=== PATIENT | female | born 1990 | race Caucasian/White ===

== ENCOUNTER 2016-04-21 21:02 | Emergency (ER) | payer OTHER ==
--- NOTE | 2016-04-21 21:53 | ER Document Report ---
ED Medical Screen (RME) - General Stated Complaint: ABDOMINAL PAIN Mode of Arrival: Ambulatory Information source: Patient Notes: Patient presents to emergency department with right upper quadrant abdominal pain for the past 3 days. Reports nausea and diarrhea. Reports history of cholecystitis. - Related Data Allergies/Adverse Reactions: No Known Allergies Allergy (Verified 01/12/13 15:38) Past Medical History - Past Medical History Cardiac Medical History: Reports: Hx Hypertension Past Surgical History: Reports: Hx Dilation and Curettage, Hx Gynecologic Surgery - d&c - Immunizations Hx Diphtheria, Pertussis, Tetanus Vaccination: Yes - 02/2013 Physical Exam - Vital signs Vitals: Temp Pulse BP Pulse Ox 98.4 F 123 H 145/92 H 100 04/21/16 21:06 04/21/16 21:06 04/21/16 21:06 04/21/16 21:06 Course - Vital Signs Vital signs: Temp Pulse Resp BP Pulse Ox 98.4 F 123 H 145/92 H 100 04/21/16 21:06 04/21/16 21:06 04/21/16 21:06 04/21/16 21:06
[2016-04-21 22:25] LABS: ABSOLUTE BASOPHILS # (AUTO) 0.1 10^3/uL (0.0-0.2); ABSOLUTE EOSINOPHILS # (AUTO) 0.3 10^3/uL (0.0-0.6); ABSOLUTE LYMPHOCYTES (AUTO) 2.7 10^3/uL (0.5-4.7); ABSOLUTE MONOCYTES (AUTO) 0.9 10^3/uL (0.1-1.4); ABSOLUTE NEUT (AUTO) 7.6 10^3/uL (1.7-8.2); BASOPHILS % (AUTO) 0.8 % (0-2); EOSINOPHILS % (AUTO) 2.7 % (0-6); HEMATOCRIT 38.3 % (36.0-47.0); HEMOGLOBIN 12.2 g/dL (12.0-15.5); HGB HCT DIFFERENCE -1.7; LYMPHOCYTES % (AUTO) 23.4 % (13-45); MEAN CORPUSCULAR HEMOGLOBIN 24.4 pg (27.0-33.4); MEAN CORPUSCULAR HGB CONC 31.8 g/dL (32.0-36.0); MEAN CORPUSCULAR VOLUME 77 fl (80-97); MONOCYTES % (AUTO) 7.7 % (3-13); RED CELL DISTRIBUTION WIDTH 14.9 % (11.5-14.0); SEGMENTED NEUTROPHILS % (AUTO) 65.4 % (42-78); WHITE BLOOD COUNT 11.7 10^3/uL (4.0-10.5)
[2016-04-21 22:43] LABS: ALANINE AMINOTRANSFERASE 41 U/L (9-52); ALBUMIN 4.3 g/dL (3.5-5.0); ALKALINE PHOSPHATASE 90 U/L (38-126); ANION GAP 12 (5-19); ASPARTATE AMINO TRANSFERASE 29 U/L (14-36); BILIRUBIN,TOTAL 0.6 mg/dL (0.2-1.3); BLOOD UREA NITROGEN 14 mg/dL (7-20); CALCIUM 9.9 mg/dL (8.4-10.2); CARBON DIOXIDE 27 mmol/L (22-30); CHLORIDE 103 mmol/L (98-107); CREATININE RESULT 0.78 mg/dL (0.52-1.25); GLUCOSE 100 mg/dL (75-110); POTASSIUM 4.9 mmol/L (3.6-5.0); SODIUM 141.9 mmol/L (137-145); TOTAL PROTEIN 7.3 g/dL (6.3-8.2)
[2016-04-22 00:32] LABS: APPEARANCE,URINE CLEAR; BILIRUBIN,URINE NEGATIVE (NEGATIVE); GLUCOSE, URINE NEGATIVE (NEGATIVE); KETONES,URINE NEGATIVE (NEGATIVE); LEUKOCYTE ESTERASE,URINE NEGATIVE (NEGATIVE); NITRITE,URINE NEGATIVE (NEGATIVE); PROTEIN,URINE NEGATIVE (NEGATIVE); URINE SPECIFIC GRAVITY 1.016; UROBILINOGEN,URINE NEGATIVE mg/dL (<2.0)
[2016-04-22 00:56] VITALS: BP 140/77
[2016-04-22] MEDS ORDERED: METHYLPREDNISOLONE INJ 125 MG/2 ML SDV IV ONE (01:15)
[2016-04-22] MEDS ORDERED: DIPHENHYDRAMINE HCL 50 MG/ML VIAL IV ONE (01:15)
--- NOTE | 2016-04-22 01:35 | ER Document Report ---
ED General - General Chief Complaint: Abdominal Pain Stated Complaint: ABDOMINAL PAIN Mode of Arrival: Ambulatory Notes: Patient is a 26-year-old female presents for complaints of pain in the right upper quadrant. Patient has a history of known gallbladder disease. This started when she was 2 years ago. They do not want to do surgery at that time . She says since then she can usually work through the pain and will go away. Over last 3 days pain has been constant. No vomiting. No fevers. Patient's only other complaint is that she's developed red macular papular type rash over her extremities. She says it started out as itching over extremities and now has developed a rash. She does not remember eating any new foods. No new medications. She is unsure where this came from. TRAVEL OUTSIDE OF THE [place] IN LAST 30 DAYS: No - Related Data Allergies/Adverse Reactions: No Known Allergies Allergy (Verified 01/12/13 15:38) Past Medical History - General Information source: Patient - Social History Smoking Status: Never Smoker Frequency of alcohol use: None Drug Abuse: None Family History: Reviewed & Not Pertinent Patient has suicidal ideation: No Patient has homicidal ideation: No - Past Medical History Cardiac Medical History: Reports: Hx Hypertension Renal/ Medical History: Denies: Hx Peritoneal Dialysis Past Surgical History: Reports: Hx Dilation and Curettage, Hx Gynecologic Surgery - d&c - Immunizations Hx Diphtheria, Pertussis, Tetanus Vaccination: Yes - 02/2013 Review of Systems - Review of Systems Notes: My Normal Review Basic REVIEW OF SYSTEMS: CONSTITUTIONAL : Denies fever, chills, or sweats. Denies recent illness. EENT: Denies eye, ear, throat, or mouth pain or symptoms. Denies nasal or sinus congestion. RESPIRATORY: Denies cough, cold, or chest congestion. Denies shortness of breath, difficulty breathing, or wheezing. GASTROINTESTINAL: Right Upper quadrant abdominal pain. Denies nausea, vomiting , or diarrhea. Denies constipation. Last BM: GENITOURINARY: Denies difficulty urinating, painful urination, burning, frequency, or blood in urine. FEMALE GENITOURINARY: Denies vaginal bleeding, abnormal or irregular periods. MUSCULOSKELETAL: Denies neck or back pain or joint pain or swelling. SKIN: Red maculopapular rash NEUROLOGICAL: Denies altered mental status or loss of consciousness. Denies headache. Denies weakness or paralysis or loss of use of either side. Denies problems with gait or speech. Denies sensory or motor loss. ALL OTHER SYSTEMS REVIEWED AND NEGATIVE. Physical Exam - Vital signs Vitals: Temp Pulse BP Pulse Ox 98.4 F 123 H 145/92 H 100 04/21/16 21:06 04/21/16 21:06 04/21/16 21:06 04/21/16 21:06 - Notes Notes: General Appearance: Well nourished, alert, cooperative, no acute distress, no obvious discomfort. Vitals: reviewed, See vital signs table. Head: no swelling or tenderness to the head Eyes: PERRL, EOMI, Conjuctiva clear Mouth: No decreasd moisture Lungs: No wheezing, No rales, No rhonci, No accessory muscle use, good air exchange bilaterally. Heart: Normal rate, Regular rythm, No murmur, no rub Abdomen: Normal BS, soft, No rigidity, moderate right upper quadrant abdominal tenderness to palpation, No guarding, no rebound, no abdominal masses, no organomegaly Extremities: strength 5/5 in all extremities, good pulses in all extremities, no swelling or tenderness in the extremities, no edema. Skin: warm, dry, appropriate color, no rash Neuro: speech clear, oriented x 3, normal affect, responds appropriately to questions. Course - Vital Signs Vital signs: Temp Pulse Resp BP Pulse Ox 97.9 F 98 17 140/77 H 98 04/22/16 00:37 04/22/16 00:37 04/22/16 00:37 04/22/16 00:37 04/22/16 00:37 - Laboratory Result Diagrams: 04/21/16 22:00 04/21/16 22:00 Laboratory results interpreted by me: 04/21/16 22:00 WBC 11.7 H MCV 77 L MCH 24.4 L MCHC 31.8 L RDW 14.9 H - Transfer of Care Notes: 04/22/16 07:36 Patient is just a slight leukocytosis. She does have gallstones. There is no evidence of gallbladder infection on ultrasound. I did call and speak with Dr. Bishop, general surgeon, who says that he feels it be more appropriate to delay the patient is surgery being that she does not have evidence of actual gallbladder infection at this time and also because of the rash that she has. Is concerned that if this is an infectious rash that it probably would not be the best idea to undergo surgery being that it is not emergent at this time. I understand his reasoning and did explain to the patient who is agreeable to this. Her rash is very early and that it just started today. It does appear as if it may in the pain. Right cyst; however, I do not see a actual Jak patch and therefore I do not think I can diagnose it as this for now. She has no pain to palpation the rash. The rash is pruritic. It is blanchable. I will place her on antibiotics in case there is a bacterial component. Again the rash is very early presentation therefore difficult to interpret exactly what is causing it. Patient otherwise felt pain. She's not toxic or septic appearing. She has no fever. Feels she is safe to be discharged home. I strongly encourage her to return to ER immediately if she has worsening abdominal pain, any vomiting, or fevers. Encourage her to return to ER shows worsening of the rash. Patient agrees with plan and will be discharged home. Discharge - Discharge Clinical Impression: Rash Abdominal pain Qualifiers: Abdominal location: right upper quadrant Qualified Code(s): R10.11 - Right upper quadrant pain Cholelithiasis Qualifiers: Cholelithiasis location: bile duct Cholecystitis presence: without cholecystitis Biliary obstruction: without biliary obstruction Qualified Code(s) : K80.50 - Calculus of bile duct without cholangitis or cholecystitis without obstruction Condition: Good Disposition: HOME, SELF-CARE Additional Instructions: ABDOMINAL PAIN: There are many causes of abdominal pain. Pain can mean a serious problem requiring surgery (such as appendicitis). It can also be an innocent problem that goes away on its own (such as a viral infection). Often, time must pass to determine the cause of pain. The physician does not feel that hospitalization is necessary, at present. Things may change within the next 24 hours. Call the doctor or come back for re- examination if any problems occur, such as: (1) Pain that becomes more severe, steady, or becomes concentrated in one specific area. Also, pain that is more severe with movement or coughing. (2) Vomiting that persists or becomes more frequent. (3) Blood in the vomitus, urine, or bowel movements. Blood in the stool may have a tarry or black appearance. (4) Shaking chills or fever greater than 100 degrees F. (5) The abdomen becomes more distended or swollen. (6) Bowel movements cease. (7) Failure to improve as expected. NORMAL EXAM AND WORKUP: At this time, your examination and workup show no significant abnormality. No significant abnormal physical findings are noted. All laboratory, EKG, and imaging (ultrasound) studies that were ordered show no significant abnormality. Although your examination and all studies that were ordered showed no significant abnormal finding, there are no examinations and no studies that are 100% accurate. There is always the possibility that some abnormality could exist and not be detected with physical examination or within the limits and capabilities of laboratory and other studies. You should return or follow up as you were instructed on your visit today for further evaluation if your symptoms do not resolve. PAIN MEDICATION INJECTION: You have received an injection of a pain medication. You should experience significant pain relief within 45 minutes. This drug is a narcotic - - it will impair your judgement, slow your reaction time and make you sleepy ( as well as relieve your pain). Narcotics also can cause nausea. You should not drive, work with machinery, or perform any task requiring mental alertness until all effects of the medication are gone -- six to eight hours. Do not take any alcohol, or sedatives, and do not take any other medication without checking with your physician. ANTINAUSEA MEDICATION: You have been given a medication to suppress nausea and vomiting. This type of medication can be given as a shot, pill, or suppository. It will usually last for many hours. Pills and shots usually last six to eight hours, suppositories last about 12 hours. For the typical illness, only one or two doses of the medication may be necessary. Mild lightheadedness may occur. This type of medicine can cause drowsiness. Do not drive or operate dangerous machinery while under its influence. Do not mix with alcohol. See your doctor at once if you have muscle spasms or tightness, or uncontrollable motions (particularly of the neck, mouth, or jaw). Persistent vomiting or severe lightheadedness should also be evaluated by the physician. ORAL NARCOTIC MEDICATION: You have been given a prescription for pain control. This medication is a narcotic. It's best taken with food, as nausea can result if taken on an empty stomach. Don't operate machinery or drive within six hours of taking this medication. Do not combine this medicine with alcohol, or with any medication which can cause sedation (such as cold tablets or sleeping pills) unless you get permission from the physician. Narcotics tend to cause constipation. If possible, drink plenty of fluids and eat a diet high in fiber and fruits. Please be aware that prescription narcotics also have the potential for abuse. People become addicted to these medications because of the general sense of wellbeing that they induce. This feeling along with a significant reduction in tension, anxiety, and aggression provides a stimulating seductive quality to these drugs. Once your pain is under control, we encourage you to discard your unused narcotics. FOLLOW-UP CARE: If you have been referred to a physician for follow-up care, call the physician s office for an appointment as you were instructed or within the next two days. If you experience worsening or a significant change in your symptoms, notify the physician immediately or return to the Emergency Department at any time for re-evaluation. FOLLOW-UP CARE: You have a gallbladder that has several gallstones. This is most likely causing your pain. It is very important you call the surgery clinic to make an appointment for evaluation to have your gallbladder removed. The number for the surgery clinic is under the name "Dr. Adan" in your discharge instructions. The exact cause of your rash is not exactly clear sa it is early in its presentation. Its current pattern is consistent with a viral cause, but I cannot 100% rule out a bacterial cause and therefore will place you on an antibiotic. Please have a low threshold to return to the ER if you have fevers, worsening of your rash, vomiting, or worsneing abdominal pain. Do not hesitate to return for any concerns. Prescriptions: Clindamycin HCl 300 mg PO ASDIR #56 capsule Hydrocodone/Acetaminophen [[place] 5-325 mg Tablet] 1 tab PO Q4 PRN #16 tablet PRN Reason: For Breakthrough Pain Ondansetron [Zofran Odt 4 mg Tablet] 1 tab PO Q4H PRN #15 tab.rapdis PRN Reason: For Nausea/Vomiting Forms: Return to Work Referrals: REINA ADAN MD [ACTIVE STAFF] - Follow up as needed
[2016-04-22] MEDS ORDERED: HYDROMORPHONE HCL INJ/PF 2 MG/ML AMPULE IV ONE (03:02)
[2016-04-22] MEDS ORDERED: FENTANYL CITRATE INJ/PF 100 MCG/2 ML AMPUL IV ONE (05:01)
[2016-04-22] MEDS ORDERED: HYDROCODONE/ACETAMINOPHEN 5-325 MG 6 TAB/DSPK PO PRN (06:03)
[2016-04-22] MEDS ORDERED: CLINDAMYCIN HCL 150 MG CAPSULE PO ONE (06:03)
[2016-04-22] MEDS ORDERED: DIPHENHYDRAMINE HCL 25 MG CAPSULE PO ONE (06:06)
== END 2016-04-22 06:26 | disposition home or self-care (01) ==
LOC: ER 21:02
DX: K80.50 Calculus of bile duct without cholangitis or cholecystitis without obstruction (principal); D72.829 Elevated white blood cell count, unspecified; R21 Rash and other nonspecific skin eruption; L29.8 Other pruritus; R10.11 Right upper quadrant pain; I10 Essential (primary) hypertension
CPT/HCPCS: 99284; 96374; 96375; 36415; 83690; 84703; 85025; 80053; 81001; 76705; 93976; J1200; J3010; J2930; J1170